=== PATIENT | male | born 1955 | race Caucasian/White ===

== ENCOUNTER 2016-09-27 12:09 | Inpatient (IN) | payer OTHER ==
[2016-09-27 14:30] VITALS: BMI 23.6
--- NOTE | 2016-09-27 14:37 | HP ---
CIWA Score - CIWA Score Nausea/Vomitin-No Nausea/No Vomiting Muscle Tremors: 3 Anxiety: 3 Agitation: 3 Paroxysmal Sweats: 3 Orientation: 0-Oriented Tacttile Disturbances: 0-None Auditory Disturbances: 0-None Visual Disturbances: 0-None Headache: 0-None Present CIWA-Ar Total Score: 12 Admission ROS BHS - HPI Chief Complaint: pt is a 61yr old male with a history of alcohol dependence seeking detox for treatment. Allergies/Adverse Reactions: Allergies Allergy/AdvReac Type Severity Reaction Status Date / Time No Known Allergies Allergy Verified 09/27/16 14:10 History of Present Illness: I drank this morning and have been drinking more each day i thought i was ready for rehab but i believe i need detox first. Exam Limitations: No Limitations - Ebola screening Have you traveled outside of the country in the last 21 days: No Have you had contact with anyone from an Ebola affected area: No Have you been sick,other than usual withdrawal symptoms: No - Review of Systems Constitutional: Chills, Diaphoresis, Changes in sleep EENT: reports: No Symptoms Reported Respiratory: reports: No Symptoms reported GI: reports: No Symptoms Reported : reports: No Symptoms Reported Musculoskeletal: reports: No Symptoms Reported Integumentary: reports: Flushing Neuro: reports: Tremors Endocrine: reports: Excessive Sweating, Flushing, Intolerance to Cold, Intolerance to Heat Hematology: reports: No Symptoms Reported Psychiatric: reports: Judgement Intact, Mood/Affect Appropiate, Orientated x3, Agitated, Anxious Other Systems: Reviewed and Negative Patient History - Patient Medical History Hx Anemia: No Hx Asthma: No Hx Chronic Obstructive Pulmonary Disease (COPD): No Hx Cancer: No Hx Cardiac Disorders: No Hx Congestive Heart Failure: No Hx Hypertension: Yes Hx Hypercholesterolemia: No Hx Pacemaker: No HX Cerebrovascular Accident: No Hx Seizures: No Hx Dementia: No Hx Diabetes: No Hx Gastrointestinal Disorders: No Hx Liver Disease: No Hx Genitourinary Disorders: No Hx Sexually Transmitted Disorders: No Hx Renal Disease (ESRD): No Hx Thyroid Disease: No Hx Human Immunodeficiency Virus (HIV): No Hx Hepatitis C: No (negative) Hx Depression: No Hx Suicide Attempt: No (denies) Hx Bipolar Disorder: No Hx Schizophrenia: No - Patient Surgical History Past Surgical History: Yes Hx Neurologic Surgery: No Hx Cataract Extraction: No Hx Cardiac Surgery: No Hx Lung Surgery: No Hx Breast Surgery: No Hx Breast Biopsy: No Hx Abdominal Surgery: No Hx Appendectomy: No Hx Cholecystectomy: No Hx Genitourinary Surgery: No Hx Section: No Hx Orthopedic Surgery: Yes (fx. left elbow) Other Surgical History: removal of cyst on top of head Anesthesia Reaction: No - PPD History Previous Implant?: Yes Documented Results: Negative w/o proof PPD to be Administered?: Yes - Reproductive History Patient is a Female of Child Bearing Age (11 -55 yrs old): No - Smoking Cessation Smoking history: Current every day smoker Have you smoked in the past 12 months: Yes Aproximately how many cigarettes per day: 10 Hx Chewing Tobacco Use: No Initiated information on smoking cessation: Yes 'Breaking Loose' booklet given: 09/27/16 - Substance & Tx. History Hx Alcohol Use: Yes Hx Substance Use: No Substance Use Type: Alcohol Hx Substance Use Treatment: Yes - Substances Abused Alcohol-beer Route: Oral Frequency: 3-6 times per week Amount used: 3-4 (24 oz.) Age of first use: 16 Date of Last Use: 09/27/16 Family Disease History - Family Disease History Family Disease History: Heart Disease: Father, Mother Admission Physical Exam BHS - Vital Signs Vital Signs: Vital Signs - 24 hr 09/27/16 14:11 Temperature 97 F L Pulse Rate 110 H Respiratory 20 Rate Blood Pressure 169/112 - Physical General Appearance: Yes: Appropriately Dressed, Moderate Distress, Tremorous, Irritable, Sweating, Anxious HEENTM: Yes: Normal Voice Respiratory: Yes: Lungs Clear, Normal Breath Sounds, No Respiratory Distress Neck: Yes: No masses,lesions,Nodules Breast: Yes: Within Normal Limits Cardiology: Yes: Regular Rhythm, Regular Rate, S1, S2 Abdominal: Yes: Normal Bowel Sounds, Non Tender, Soft Genitourinary: Yes: Within Normal Limits Back: Yes: Normal Inspection Musculoskeletal: Yes: full range of Motion Extremities: Yes: Normal Capillary Refill, Tremors Neurological: Yes: Fully Oriented, Alert, Normal Response Integumentary: Yes: Normal Color, Diaphoresis Lymphatic: Yes: Within Normal Limits - Diagnostic (1) Alcohol dependence with uncomplicated withdrawal Current Visit: Yes Status: Chronic (2) Nicotine dependence Current Visit: Yes Status: Chronic Qualifiers: Nicotine product type: cigarettes Substance use status: uncomplicated Qualified Code(s): F17.210 - Nicotine dependence, cigarettes, uncomplicated (3) Hypertension Current Visit: Yes Status: Chronic Qualifiers: Hypertension type: essential hypertension Qualified Code(s): I10 - Essential (primary) hypertension Cleared for Admission BHS - Detox or Rehab [facility] Level of Care: Medically Managed Detox Regimen/Protocol: Librium BHS Breath Alcohol Content Breath Alcohol Content: 0.029 Urine Drug Screen - Results Drug Screen Negative: Yes
[2016-09-27] MEDS ORDERED: MAG HYDROX/AL HYDROX/SIMETH 30 ML UNIT-DOSE CUP PO PRN (14:48)
[2016-09-27] MEDS ORDERED: MAGNESIUM CITRATE 300 ML BOTTLE PO PRN (14:48)
[2016-09-27] MEDS ORDERED: guaiFENesin/D-METHORPHAN HB 10 ML UNIT-DOSE CUPS PO PRN (14:48)
[2016-09-27] MEDS ORDERED: ACETAMINOPHEN 325 MG TABLET (FP) PO PRN (14:48)
[2016-09-27] MEDS ORDERED: IBUPROFEN 400 MG TABLET (FP) PO PRN (14:48)
[2016-09-27] MEDS ORDERED: chlordiazePOXIDE HCL 25 MG CAPSULE PO PRN (14:48)
[2016-09-27] MEDS ORDERED: MAGNESIUM HYDROX 2400MG/30ML ORAL SUSPENSION 30 ML CUP PO PRN (14:48)
[2016-09-27] MEDS ORDERED: NICOTINE POLACRILEX 4 MG GUM BC PRN (14:48)
[2016-09-27] MEDS ORDERED: LOPERAMIDE HCL 2 MG CAPSULE PO PRN (14:48)
[2016-09-27] MEDS ORDERED: MENTHOL/PHENOL 1 EACH UD MM PRN (14:48)
[2016-09-27] MEDS ORDERED: P-EPHED 60MG/TRIPROLIDI 2.5MG TABLET PO PRN (14:48)
[2016-09-27] MEDS ORDERED: cloNIDine HCL 0.1 MG TABLET PO ONE (15:56)
[2016-09-27] MEDS ORDERED: chlordiazePOXIDE HCL 25 MG CAPSULE PO ONE (15:56)
[2016-09-27] MEDS: chlordiazePOXIDE HCL 25 MG CAPSULE PO SCH ×2 (17:10→22:23)
[2016-09-27 21:43] LABS: URINE APPEARANCE CLEAR; URINE BILIRUBIN NEGATIVE (NEGATIVE); URINE BLOOD NEGATIVE (NEGATIVE); URINE COLOR LTYELLOW; URINE GLUCOSE (UA) NEGATIVE (NEGATIVE); URINE KETONE NEGATIVE (NEGATIVE); URINE LEUK ESTERASE NEGATIVE (NEGATIVE); URINE NITRITE NEGATIVE (NEGATIVE); URINE UROBILINOGEN NEGATIVE E.U./dl (0.2-1.0)
[2016-09-27 21:45] LABS: URINE PROTEIN 2+ (NEGATIVE)
[2016-09-27 21:50] LABS: URINE HYALINE CAST 1 /lpf; URINE MUCUS RARE; URINE RBC 3 /hpf (0-3); URINE WBC <1 /hpf (3-5)
[2016-09-27] MEDS: THIAMINE HCL 100 MG TABLET (FP) PO SCH (22:23)
[2016-09-27] MEDS: diphenhydrAMINE HCL 50 MG CAPSULE PO PRN (22:23)
[2016-09-28] MEDS: chlordiazePOXIDE HCL 25 MG CAPSULE PO SCH ×4 (05:40→23:16)
[2016-09-28] MEDS: NICOTINE 21 MG/24 HOURS TOPICAL PATCH TD SCH (10:28)
[2016-09-28] MEDS: PRENATAL VITAMINS W/ FOLIC ACID TABLET (FP) PO SCH (10:28)
[2016-09-28] MEDS: amLODIPine BESYLATE 5 MG TABLET (FP) PO SCH (10:29)
[2016-09-28 11:11] LABS: MCH 28.1 pg (25.7-33.7); MCHC 31.8 g/dl (32.0-35.9); MEAN CELL VOLUME 88.2 fl (80-96); MEAN PLT VOLUME 9.9 fl (7.5-11.1); PLATELET COUNT 266 K/MM3 (134-434); RDW 17.5 % (11.9-15.9); WHITE BLOOD COUNT 8.8 K/mm3 (4.0-10.0)
[2016-09-28 11:24] LABS: ALBUMIN 4.2 g/dl (3.4-5.0); ANION GAP 13 (8-16); CALCIUM 9.4 mg/dL (8.5-10.1); CO2 31 mmol/L (21-32); GLUCOSE,RANDOM 77 mg/dL (74-106)
[2016-09-28 11:27] LABS: ALK PHOS 85 U/L (45-117); BILIRUBIN,TOTAL 0.5 mg/dL (0.2-1.0); CREATININE 0.6 mg/dL (0.7-1.3); SGOT/AST 30 U/L (15-37); SGPT/ALT 26 U/L (12-78); TOT PROT 8.6 g/dl (6.4-8.2)
--- NOTE | 2016-09-28 11:28 | PN ---
[facility] CIWA - CIWA Score Nausea/Vomitin-No Nausea/No Vomiting Muscle Tremors: 4-Moderate,w/Arms Extend Anxiety: 4-Mod. Anxious/Guarded Agitation: 3 Paroxysmal Sweats: 3 Orientation: 0-Oriented Tacttile Disturbances: 0-None Auditory Disturbances: 0-None Visual Disturbances: 0-None Headache: 0-None Present CIWA-Ar Total Score: 14 S Progress Note (SOAP) Subjective: anxiety,tremors,sweating,interrupted sleep,restless Objective: 09/28/16 11:27 Vital Signs - 8 hr 09/28/16 09/28/16 09/28/16 03:30 06:42 10:47 Temperature 96.8 F L 96.0 F L Pulse Rate 105 H 109 H Respiratory 18 16 20 Rate Blood Pressure 159/93 144/85 Laboratory Tests 09/27/16 09/28/16 20:00 06:15 WBC 8.8 RBC 4.45 Hgb 12.5 Hct 39.2 MCV 88.2 MCHC 31.8 L RDW 17.5 H Plt Count 266 MPV 9.9 Urine Color Ltyellow Urine Appearance Clear Urine pH 7.0 Ur Specific [place] 1.013 Urine Protein 2+ H Urine Glucose (UA) Negative Urine Ketones Negative Urine Blood Negative Urine Nitrite Negative Urine Bilirubin Negative Urine Urobilinogen Negative Ur Leukocyte Esterase Negative Urine RBC 3 Urine WBC <1 Ur Epithelial Cells Rare Hyaline Casts 1 Urine Mucus Rare labs noted Assessment: 09/28/16 11:27 withdrawal sx. Plan: Continue detox
[2016-09-28] MEDS: BACITRACIN 30 GM TUBE TOPICAL OINTMENT TP SCH ×2 (14:21→23:16)
[2016-09-28] MEDS: THIAMINE HCL 100 MG TABLET (FP) PO SCH (23:16)
[2016-09-29] MEDS: chlordiazePOXIDE HCL 25 MG CAPSULE PO SCH ×2 (05:29→10:22)
[2016-09-29] MEDS: amLODIPine BESYLATE 5 MG TABLET (FP) PO SCH (10:22)
[2016-09-29] MEDS: PRENATAL VITAMINS W/ FOLIC ACID TABLET (FP) PO SCH (10:22)
[2016-09-29] MEDS: NICOTINE 21 MG/24 HOURS TOPICAL PATCH TD SCH (10:22)
[2016-09-29] MEDS: BACITRACIN 30 GM TUBE TOPICAL OINTMENT TP SCH ×2 (11:07→22:06)
--- NOTE | 2016-09-29 15:54 | PN ---
S CIWA - CIWA Score Nausea/Vomitin Muscle Tremors: 3 Anxiety: 4-Mod. Anxious/Guarded Agitation: 3 Paroxysmal Sweats: 1-Minimal Palms Moist Orientation: 0-Oriented Tacttile Disturbances: 1-Very Mild Itch/Numbness Auditory Disturbances: 0-None Visual Disturbances: 0-None Headache: 2-Mild CIWA-Ar Total Score: 17 BHS Progress Note (SOAP) Subjective: Nausea, tremor, interrupted sleep, anxious Objective: 09/29/16 15:51 Last Vital Signs Temp Pulse Resp BP Pulse Ox 97.4 F L 106 H 20 147/88 09/29/16 14:11 09/29/16 14:11 09/29/16 14:11 09/29/16 14:11 Laboratory Tests 09/27/16 09/28/16 09/28/16 20:00 06:15 06:15 WBC 8.8 RBC 4.45 Hgb 12.5 Hct 39.2 MCV 88.2 MCHC 31.8 L RDW 17.5 H Plt Count 266 MPV 9.9 Sodium 140 Potassium 3.7 Chloride 96 L Carbon Dioxide 31 Anion Gap 13 BUN 10 Creatinine 0.6 L Creat Clearance w eGFR > 60 Random Glucose 77 Calcium 9.4 Total Bilirubin 0.5 AST 30 ALT 26 Alkaline Phosphatase 85 Total Protein 8.6 H Albumin 4.2 Urine Color Ltyellow Urine Appearance Clear Urine pH 7.0 Ur Specific [place] 1.013 Urine Protein 2+ H Urine Glucose (UA) Negative Urine Ketones Negative Urine Blood Negative Urine Nitrite Negative Urine Bilirubin Negative Urine Urobilinogen Negative Ur Leukocyte Esterase Negative Urine RBC 3 Urine WBC <1 Ur Epithelial Cells Rare Hyaline Casts 1 Urine Mucus Rare RPR Titer 09/28/16 06:15 WBC RBC Hgb Hct MCV MCHC RDW Plt Count MPV Sodium Potassium Chloride Carbon Dioxide Anion Gap BUN Creatinine Creat Clearance w eGFR Random Glucose Calcium Total Bilirubin AST ALT Alkaline Phosphatase Total Protein Albumin Urine Color Urine Appearance Urine pH Ur Specific [place] Urine Protein Urine Glucose (UA) Urine Ketones Urine Blood Urine Nitrite Urine Bilirubin Urine Urobilinogen Ur Leukocyte Esterase Urine RBC Urine WBC Ur Epithelial Cells Hyaline Casts Urine Mucus RPR Titer Nonreactive Labs noted: UA: 2+ protein Assessment: 09/29/16 15:52 Withdrawal symptoms Noted with proteinuria Plan: Continue detox Proteinuria: encouraged to drink lots of water, repeat UA
[2016-09-29] MEDS: chlordiazePOXIDE 5 MG CAPSULE PO SCH ×2 (17:39→22:05)
[2016-09-29] MEDS: diphenhydrAMINE HCL 50 MG CAPSULE PO PRN (22:05)
[2016-09-29] MEDS: THIAMINE HCL 100 MG TABLET (FP) PO SCH (22:05)
--- NOTE | 2016-09-29 22:57 | EKG ---
Test Reason : Blood Pressure : / mmHG Vent. Rate : 103 BPM Atrial Rate : 103 BPM P-R Int : 160 ms QRS Dur : 088 ms QT Int : 370 ms P-R-T Axes : 073 067 066 degrees QTc Int : 484 ms SINUS TACHYCARDIA POSSIBLE LEFT ATRIAL ENLARGEMENT LEFT VENTRICULAR HYPERTROPHY PROLONGED QT ABNORMAL ECG NO PREVIOUS ECGS AVAILABLE Confirmed by SIDDHARTH MARTINEZ MD ([id number]) on 09/29/2016 10:57:12 PM Referred By: Confirmed By:SIDDHARTH MARTINEZ MD
[2016-09-30] MEDS: chlordiazePOXIDE 5 MG CAPSULE PO SCH ×2 (05:53→10:24)
[2016-09-30] MEDS: amLODIPine BESYLATE 5 MG TABLET (FP) PO SCH ×2 (10:24→22:26)
[2016-09-30] MEDS: NICOTINE 21 MG/24 HOURS TOPICAL PATCH TD SCH (10:24)
[2016-09-30] MEDS: PRENATAL VITAMINS W/ FOLIC ACID TABLET (FP) PO SCH (10:24)
[2016-09-30] MEDS: BACITRACIN 30 GM TUBE TOPICAL OINTMENT TP SCH ×2 (10:25→22:25)
--- NOTE | 2016-09-30 13:52 | PN ---
BHS Progress Note (SOAP) Subjective: Sweating,interrupted sleep,restless Objective: 09/30/16 13:51 Vital Signs - 8 hr 09/30/16 09/30/16 09/30/16 06:48 09:34 13:31 Temperature 97.8 F 97.5 F L 96.2 F L Pulse Rate 91 H 101 H 98 H Respiratory 18 20 18 Rate Blood Pressure 156/91 159/88 166/90 Laboratory Last Values WBC 8.8 K/mm3 (4.0-10.0) 09/28/16 06:15 RBC 4.45 M/mm3 (4.00-5.60) 09/28/16 06:15 Hgb 12.5 GM/dL (11.7-16.9) 09/28/16 06:15 Hct 39.2 % (35.4-49) 09/28/16 06:15 MCV 88.2 fl (80-96) 09/28/16 06:15 MCHC 31.8 g/dl (32.0-35.9) L 09/28/16 06:15 RDW 17.5 % (11.9-15.9) H 09/28/16 06:15 Plt Count 266 K/MM3 (134-434) 09/28/16 06:15 MPV 9.9 fl (7.5-11.1) 09/28/16 06:15 Sodium 140 mmol/L (136-145) 09/28/16 06:15 Potassium 3.7 mmol/L (3.5-5.1) 09/28/16 06:15 Chloride 96 mmol/L (98-107) L 09/28/16 06:15 Carbon Dioxide 31 mmol/L (21-32) 09/28/16 06:15 Anion Gap 13 (8-16) 09/28/16 06:15 BUN 10 mg/dL (7-18) 09/28/16 06:15 Creatinine 0.6 mg/dL (0.7-1.3) L 09/28/16 06:15 Creat Clearance w eGFR > 60 (>60) 09/28/16 06:15 Random Glucose 77 mg/dL (74-106) 09/28/16 06:15 Calcium 9.4 mg/dL (8.5-10.1) 09/28/16 06:15 Total Bilirubin 0.5 mg/dL (0.2-1.0) 09/28/16 06:15 AST 30 U/L (15-37) 09/28/16 06:15 ALT 26 U/L (12-78) 09/28/16 06:15 Alkaline Phosphatase 85 U/L (45-117) 09/28/16 06:15 Total Protein 8.6 g/dl (6.4-8.2) H 09/28/16 06:15 Albumin 4.2 g/dl (3.4-5.0) 09/28/16 06:15 Urine Color Ltyellow 09/27/16 20:00 Urine Appearance Clear 09/27/16 20:00 Urine pH 7.0 (5.0-8.0) 09/27/16 20:00 Ur Specific [place] 1.013 (1.001-1.035) 09/27/16 20:00 Urine Protein 2+ (NEGATIVE) H 09/27/16 20:00 Urine Glucose (UA) Negative (NEGATIVE) 09/27/16 20:00 Urine Ketones Negative (NEGATIVE) 09/27/16 20:00 Urine Blood Negative (NEGATIVE) 09/27/16 20:00 Urine Nitrite Negative (NEGATIVE) 09/27/16 20:00 Urine Bilirubin Negative (NEGATIVE) 09/27/16 20:00 Urine Urobilinogen Negative E.U./dl (0.2-1.0) 09/27/16 20:00 Ur Leukocyte Esterase Negative (NEGATIVE) 09/27/16 20:00 Urine RBC 3 /hpf (0-3) 09/27/16 20:00 Urine WBC <1 /hpf (3-5) 09/27/16 20:00 Ur Epithelial Cells Rare /hpf (FEW) 09/27/16 20:00 Hyaline Casts 1 /lpf 09/27/16 20:00 Urine Mucus Rare 09/27/16 20:00 RPR Titer Nonreactive (NONREACTIVE) 09/28/16 06:15 labs noted Assessment: 09/30/16 13:52 Withdrawal sx. Plan: Continue detox
[2016-09-30 16:06] LABS: URINE APPEARANCE CLEAR; URINE BILIRUBIN NEGATIVE (NEGATIVE); URINE BLOOD NEGATIVE (NEGATIVE); URINE COLOR YELLOW; URINE GLUCOSE (UA) NEGATIVE (NEGATIVE); URINE KETONE NEGATIVE (NEGATIVE); URINE LEUK ESTERASE NEGATIVE (NEGATIVE); URINE NITRITE NEGATIVE (NEGATIVE); URINE PROTEIN NEGATIVE (NEGATIVE); URINE UROBILINOGEN NEGATIVE E.U./dl (0.2-1.0)
[2016-09-30] MEDS: chlordiazePOXIDE HCL 10 MG CAPSULE PO SCH ×2 (17:08→22:26)
[2016-09-30] MEDS: diphenhydrAMINE HCL 50 MG CAPSULE PO PRN (22:26)
[2016-09-30] MEDS: THIAMINE HCL 100 MG TABLET (FP) PO SCH (23:10)
[2016-10-01] MEDS: chlordiazePOXIDE HCL 10 MG CAPSULE PO SCH ×2 (05:20→10:23)
[2016-10-01] MEDS: PRENATAL VITAMINS W/ FOLIC ACID TABLET (FP) PO SCH (09:35)
[2016-10-01] MEDS: amLODIPine BESYLATE 5 MG TABLET (FP) PO SCH ×2 (09:35→22:21)
[2016-10-01] MEDS: BACITRACIN 30 GM TUBE TOPICAL OINTMENT TP SCH ×2 (09:35→22:21)
[2016-10-01] MEDS: NICOTINE 21 MG/24 HOURS TOPICAL PATCH TD SCH (09:36)
--- NOTE | 2016-10-01 10:38 | PN ---
BHS Progress Note (SOAP) Subjective: DECREASED ANXIETY,SWEATS,TREMORS. Objective: 10/01/16 10:38 Vital Signs Temperature 97.3 F L 10/01/16 10:03 Pulse Rate 111 H 10/01/16 10:03 Respiratory Rate 18 10/01/16 10:03 Blood Pressure 152/89 10/01/16 10:03 O2 Sat by Pulse Oximetry (%) Assessment: 10/01/16 10:38 WITHDRAWAL SX Plan: CONTINUE DETOX
[2016-10-01] MEDS: hydrOXYzine PAMOATE 50 MG CAPSULE (FP) PO PRN (16:55)
[2016-10-01] MEDS: diphenhydrAMINE HCL 50 MG CAPSULE PO PRN (22:21)
[2016-10-01] MEDS: THIAMINE HCL 100 MG TABLET (FP) PO SCH (22:21)
[2016-10-02] MEDS: hydrOXYzine PAMOATE 50 MG CAPSULE (FP) PO PRN (05:38)
[2016-10-02 06:17] VITALS: BP 152/88; PULSE 96; TEMP 97.3
[2016-10-02] MEDS: BACITRACIN 30 GM TUBE TOPICAL OINTMENT TP SCH (11:10)
[2016-10-02] MEDS: NICOTINE 21 MG/24 HOURS TOPICAL PATCH TD SCH (11:11)
[2016-10-02] MEDS: PRENATAL VITAMINS W/ FOLIC ACID TABLET (FP) PO SCH (11:14)
[2016-10-02] MEDS: amLODIPine BESYLATE 5 MG TABLET (FP) PO SCH (11:21)
--- NOTE | 2016-10-02 11:50 | DS ---
[facility] Detox Discharge Summary Admission Date: 09/27/16 Discharge Date: 10/02/16 - History Present History: Alcohol Dependence Additional Comments: DETOX COMPLETED. ALERT O X 3. NAD. REFERRED TO REHAB. Pertinent Past History: HTN - Physical Exam Results Vital Signs: Vital Signs Temperature 97.3 F L 10/02/16 06:16 Pulse Rate 96 H 10/02/16 06:16 Respiratory Rate 16 10/02/16 06:16 Blood Pressure 152/88 10/02/16 06:16 O2 Sat by Pulse Oximetry (%) Pertinent Admission Physical Exam Findings: WITHDRAWAL SX - Treatment Hospital Course: Detox Protocol Followed, Detoxed Safely, Responded well, Discharged Condition Good, Rehab Referral Accepted Patient has Accepted a Rehab Referral to: [address] [facility] - Medication Discharge Medications: Ambulatory Orders NK [No Known Home Medication] 09/27/16 - Diagnosis (1) Alcohol dependence with uncomplicated withdrawal Status: Acute (2) Hypertension Status: Chronic Qualifiers: Hypertension type: essential hypertension Qualified Code(s): I10 - Essential (primary) hypertension (3) Nicotine dependence Status: Acute Qualifiers: Nicotine product type: cigarettes Substance use status: in withdrawal Qualified Code(s): F17.213 - Nicotine dependence, cigarettes, with withdrawal - AMA Did Patient Leave Against Medical Advice: No
== END 2016-10-02 11:22 | disposition other institution (70) | DRG 775 ==
LOC: YASAS 12:09 → Y3N 14:59
PROVIDERS: ADMIT Internal Medicine; ATTEND Internal Medicine
PROC: HZ2ZZZZ Detoxification Services for Substance Abuse Treatment (ICD-10-PCS; principal; 2016-10-02)
DX: F10.230 Alcohol dependence with withdrawal, uncomplicated (principal); F17.210 Nicotine dependence, cigarettes, uncomplicated; I10 Essential (primary) hypertension
CPT/HCPCS: 36415; 80053; 81003; 81015; 85027; 86593; 93005; 93010